=== PATIENT | female | born 1970 | race Caucasian/White ===

== ENCOUNTER 2019-11-01 07:37 | Outpatient (CLI) | payer OTHER, SELFPAY ==
[2019-11-01 09:10] LABS: Alanine Aminotransferase 23 U/L (14-59); Albumin Level 3.7 g/dL (3.4-5.0); Alkaline Phosphatase 99 U/L (46-116); Aspartate Amino Transferase 15 U/L (15-37); Bilirubin,Total 0.4 mg/dL (0.00-1.00); Blood Urea Nitrogen 14 mg/dL (7-18); Calcium 8.1 mg/dL (8.5-10.1); Carbon Dioxide 29 mmol/L (21-32); Chloride 103 mmol/L (98-108); Cholesterol 211 mg/dL (0-200); Estimated Glomerular Filt Rate > 60; Glucose 90 mg/dL (70-99); HDL Direct 47 mg/dL (40-60); LDL Cholesterol Calculated 135 mg/dL (<130); Osmolality Calculated 288 mOsm/kg (285-295); Sodium 139 mmol/L (136-145); Thyroid Stimulating Hormone 16.52 uIU/mL (0.36-3.74); Total Protein 7.1 g/dL (6.4-8.2); Triglycerides 143 mg/dL (0-150)
== END 2019-11-01 07:38 | disposition home or self-care (01) ==
PROVIDERS: PCP Internal Medicine; Visit Provider Internal Medicine
DX: Z00.00 Encounter for general adult medical examination without abnormal findings (principal); E03.9 Hypothyroidism, unspecified
CPT/HCPCS: 36415; 80053; 80061; 84443

== ENCOUNTER 2020-05-24 09:09 | Outpatient (CLI) | payer OTHER, SELFPAY ==
[2020-05-24 10:11] LABS: Alanine Aminotransferase 22 U/L (14-59); Albumin Level 3.8 g/dL (3.4-5.0); Alkaline Phosphatase 97 U/L (46-116); Anion Gap 9 mmol/L (8-16); Aspartate Amino Transferase 12 U/L (15-37); Bilirubin,Total 0.5 mg/dL (0.00-1.00); Blood Urea Nitrogen 14 mg/dL (7-18); Calcium 8.5 mg/dL (8.5-10.1); Carbon Dioxide 27 mmol/L (21-32); Chloride 102 mmol/L (98-108); Cholesterol 203 mg/dL (0-200); Estimated Glomerular Filt Rate > 60; Glucose 88 mg/dL (70-99); HDL Direct 44 mg/dL (40-60); LDL Cholesterol Calculated 137 mg/dL (<130); Osmolality Calculated 285 mOsm/kg (285-295); Sodium 138 mmol/L (136-145); Total Protein 7.4 g/dL (6.4-8.2); Triglycerides 110 mg/dL (0-150)
[2020-05-24 11:03] LABS: Thyroid Stimulating Hormone 3.72 uIU/mL (0.36-3.74)
== END 2020-05-24 09:10 | disposition home or self-care (01) ==
LOC: CHSLAB 09:13
PROVIDERS: PCP Internal Medicine; Visit Provider Physician Assistant
DX: Z00.00 Encounter for general adult medical examination without abnormal findings (principal)
CPT/HCPCS: 36415; 80053; 80061; 84443

== ENCOUNTER 2022-12-10 08:53 | Outpatient (CLI) | payer BC, SELFPAY ==
--- NOTE | ~2022-12-10 | MM_ITS ---
EXAMINATION: MM screening francisco BI w geovany HISTORY: Screening mammogram TECHNIQUE: Craniocaudal and mediolateral oblique 3-D tomosynthesis images were obtained and synthetic 2-D images were generated. CAD analysis was submitted and interpreted. COMPARISON: No prior mammogram is available for comparison at this institution. BREAST PARENCHYMAL COMPOSITION: There are scattered areas of fibroglandular density. FINDINGS: RIGHT BREAST: There is a possible mass in the middle third of the upper-outer quadrant of the breast. An asymmetry is present in the subareolar aspect of the breast on the mediolateral oblique view. LEFT BREAST: A possible mass is present in the middle third of the upper outer quadrant of the breast .. IMPRESSION: 1. Bilateral breast findings as above which may represent the patient's baseline however no compariso n is currently available. 2. Comparison with prior mammograms is necessary. BI-RADS Category 0: Incomplete: Needs comparison with prior mammograms. Reviewed, dictated and finalized at location A. IMPRESSION: 1. Bilateral breast findings as above which may represent the patient's baselin e however no comparison is currently available. 2. Comparison with prior mammograms is necessary. BI-RADS Category 0: Incomplete: Needs comparison with prior mammograms.
[2022-12-10 09:25] LABS: Basophils Absolute Auto 0.04 K/mm3 (0.00-0.10); Basophils Percent Auto 0.4 % (0.0-1.0); Bilirubin Urine Negative (Negative); Blood Urine Trace-Intact (Negative); Color Urine Yellow (Yellow); Eosinophils Absolute Auto 0.21 K/mm3 (0.02-0.50); Eosinophils Percent Auto 2.2 % (1.0-6.0); Glucose Urine UA Negative (Negative); Hematocrit 41.4 % (35.0-49.0); Hemoglobin 13.5 g/dL (12.0-15.0); Immature Granulocyte Absolute 0.05 K/mm3 (0.00-0.00); Immature Granulocyte Percent A 0.5 % (0.0-0.0); Ketones Urine Negative (Negative); Leukocyte Esterase Ur Negative (Negative); Lymphocytes Absolute Auto 1.88 K/mm3 (1.10-4.50); Lymphocytes Percent Auto 19.5 % (18.0-42.0); Mean Corpuscular HGB Conc 32.6 g/dL (32.0-36.0); Mean Corpuscular Hemoglobin 28.2 pg (27.0-31.0); Mean Corpuscular Volume 86.6 fL (78.0-102.0); Mean Platelet Volume 9.1 fl (9.2-11.8); Monocytes Absolute Auto 0.52 K/mm3 (0.10-0.90); Monocytes Percent Auto 5.4 % (2.0-11.0); Nitrate Urine Negative (Negative); Platelet Count Result 209 K/mm3 (150-420); Protein Urine Negative (Negative); Red Blood Count 4.78 M/mm3 (4.20-5.40); Red Cell Distribution Width 12.9 % (11.6-14.4); Specific Grav Ur >= 1.030 (1.010-1.020); Urobilinogen Urine 0.2 mg/dL (0.2-1.0); White Blood Count 9.7 K/mm3 (4.8-10.8); pH Urine 5.5 (5.0-8.0)
[2022-12-10 09:28] LABS: Add Urine Microscopic? YES; Appearance Urine Cloudy (Clear); Bacteria Urine 1+ /hpf; RBC Urine 0-2 /hpf (0-2); Squamous Epithelial Cell Urine Moderate /hpf (Few); WBC Urine None seen /hpf (0-3)
[2022-12-10 10:02] LABS: Alanine Aminotransferase 24 U/L (14-59); Albumin Level 3.6 g/dL (3.4-5.0); Alkaline Phosphatase 103 U/L (46-116); Anion Gap 10 mmol/L (8-16); Bilirubin,Total 0.5 mg/dL (0.00-1.00); Blood Urea Nitrogen 12 mg/dL (7-18); Calcium 8.5 mg/dL (8.5-10.1); Carbon Dioxide 25 mmol/L (21-32); Chloride 106 mmol/L (98-108); Cholesterol 207 mg/dL (0-200); Estimated Glomerular Filt Rate > 60; Glucose 94 mg/dL (70-99); HDL Direct 51 mg/dL (40-60); LDL Cholesterol Calculated 139 mg/dL (<130); Osmolality Calculated 291 mOsm/kg (285-295); Sodium 141 mmol/L (136-145); Total Protein 7.1 g/dL (6.4-8.2); Triglycerides 87 mg/dL (0-150)
[2022-12-10 10:12] LABS: Aspartate Amino Transferase 12 U/L (15-37)
== END 2022-12-10 08:54 | disposition home or self-care (01) ==
LOC: CHSIMG 08:54
PROVIDERS: PCP Internal Medicine; Visit Provider Internal Medicine
DX: Z00.00 Encounter for general adult medical examination without abnormal findings (principal); Z12.31 Encounter for screening mammogram for malignant neoplasm of breast; R92.8 Other abnormal and inconclusive findings on diagnostic imaging of breast
CPT/HCPCS: 36415; 77063; 77067; 80053; 80061; 81001; 85025

== ENCOUNTER 2023-01-15 08:53 | Outpatient (CLI) | payer BC, SELFPAY ==
--- NOTE | ~2023-01-15 | MMUS_ITS ---
EXAMINATION: MM diagnostic francisco RT w geovany, US breast RT limited HISTORY: Subareolar asymmetry and possible right breast mass on screening mammogram TECHNIQUE: Additional 3-D tomosynthesis images of the right breast were performed and synthetic 2-D i mages were generated. CAD analysis was submitted and interpreted. High resolution limited right breas t ultrasound was performed. COMPARISON: 12/10/2022, 09/27/2021 BREAST PARENCHYMAL COMPOSITION: There are scattered areas of fibroglandular density. FINDINGS: MAMMOGRAPHIC FINDINGS: No definite subareolar asymmetry or right breast masses are identified with spot compression views. T here are no suspicious calcifications or architectural distortion. ULTRASOUND: There is dense breast tissue in the upper outer quadrant of the breast corresponding to the fibroglan dular tissue seen on the mammogram. A 4 mm cyst is noted at the 10:00 location, 5 cm from the nipple. IMPRESSION: 1. No mammographic or sonographic evidence of malignancy. 2. Recommend routine screening mammography in one year. BI-RADS Category 2: Benign finding(s). Reviewed, dictated and finalized at location L. IMPRESSION: 1. No mammographic or sonographic evidence of malignancy. 2. Recommend routine screening mammography in one year. BI-RADS Category 2: Benign finding(s).
== END 2023-01-15 08:54 | disposition home or self-care (01) ==
LOC: CHSIMG 08:54
PROVIDERS: PCP Internal Medicine; Visit Provider Internal Medicine
DX: R92.8 Other abnormal and inconclusive findings on diagnostic imaging of breast (principal)
CPT/HCPCS: 76642; 77061; 77065; G0279

== ENCOUNTER 2024-02-15 15:12 | Outpatient (CLI) | payer BC, OTHER, SELFPAY ==
--- NOTE | ~2024-02-15 | MM_ITS ---
EXAMINATION: MM screening francisco BI w geovany HISTORY: Screening TECHNIQUE: Craniocaudal and mediolateral oblique 3-D tomosynthesis images were obtained and synthetic 2-D images were generated. CAD analysis was submitted and interpreted. COMPARISON: Comparison to multiple prior studies sequentially, with oldest reviewed study dated 09/27. BREAST PARENCHYMAL COMPOSITION: Not dense: There are scattered areas of fibroglandular density. FINDINGS: The left breast is stable without evidence for malignancy. There is a small cluster of inde terminate calcifications in the upper inner quadrant of the right breast, middle third. IMPRESSION: 1. Focal clustered indeterminate right breast calcifications. 2. Magnification views are recommended. BI-RADS Category 0: Incomplete: Needs additional imaging evaluation. Reviewed, dictated and finalized at location B.
== END 2024-02-15 15:13 | disposition home or self-care (01) ==
PROVIDERS: PCP Internal Medicine; Visit Provider Internal Medicine
DX: Z12.31 Encounter for screening mammogram for malignant neoplasm of breast (principal); R92.8 Other abnormal and inconclusive findings on diagnostic imaging of breast
CPT/HCPCS: 77063; 77067

== ENCOUNTER 2024-02-26 08:50 | Outpatient (CLI) | payer BC, OTHER, SELFPAY ==
--- NOTE | ~2024-02-26 | MM_ITS ---
EXAMINATION: MM diagnostic francisco RT w geovany HISTORY: Follow-up right breast calcifications TECHNIQUE: Additional 3-D tomosynthesis images of the right breast were performed and synthetic 2-D i mages were generated. CAD analysis was submitted and interpreted. COMPARISON: Comparison to multiple prior studies sequentially, with oldest reviewed study dated 09/27. BREAST PARENCHYMAL COMPOSITION: Not dense: There are scattered areas of fibroglandular density. FINDINGS: Right breast calcifications are relatively monomorphic and likely benign. No suspicious mas ses or architectural distortion are identified. IMPRESSION: 1. Probable benign right breast calcifications. 2. Recommend 6 month follow-up diagnostic right mammogram BI-RADS category 3, probably benign findings. Reviewed, dictated and finalized at location B.
== END 2024-02-26 08:51 | disposition home or self-care (01) ==
PROVIDERS: PCP Internal Medicine; Visit Provider Internal Medicine
DX: R92.8 Other abnormal and inconclusive findings on diagnostic imaging of breast (principal)
CPT/HCPCS: 77061; 77065; G0279

== ENCOUNTER 2024-10-05 14:39 | Outpatient (CLI) | payer BC, OTHER, SELFPAY ==
--- NOTE | ~2024-10-05 | XR_ITS ---
Left foot Technique: AP, oblique, and lateral views were obtained. Clinical History: Pain Findings: No acute fracture or dislocation is seen. Osseous alignment is anatomic. There is mild dege nerative change at the first MTP joint. Soft tissues are unremarkable. Impression: Mild degenerative change of the first MTP joint. Reviewed, dictated and finalized at [facility]. Impression: Mild degenerative change of the first MTP joint.
--- OUTSIDE RECORDS SUMMARY | 2024-10-05 14:45 | XMS_ITS | Clinical Summary ---
Author Organization [facility] Medical Office Building A Address [address] [place] [address] Care Team Providers Care Blade Filer Name Role Phone Rui Nicole MD Primary Care Provider [phone] Allergies Active Allergy Reactions Criticality Noted Date Comments Aspirin Medications famciclovir (FAMVIR) 500 mg tablet 05/20/2020 Active lidocaine (XYLOCAINE) 5 % ointment 05/20/2020 Active gabapentin (NEURONTIN) 300 mg capsule Take 1 capsule (300 mg total) by mouth 3 (three) times a day For shingles pain 90 capsule 5 05/25/2020 Active levothyroxine (SYNTHROID) 200 mcg tablet Take 1 tablet (200 mcg total) by mouth daily Note new dose 90 tablet 3 05/25/2020 Active estradioL (ESTRACE) 0.5 mg tablet Take 1 tablet (0.5 mg total) by mouth daily 90 tablet 3 05/25/2020 Active Allergy Relief,Nasal Decongest 10-240 mg per 24 hr tablet TAKE ONE TABLET BY MOUTH DAILY 90 tablet 1 11/30/2020 Active Active Problems Problem Noted Date Diagnosed Date Special screening for malignant neoplasms, colon 10/25/2019 Overview (10/25/2019): Added automatically from request for surgery [id number] Morbid obesity with BMI of 40.0-44.9, adult 09/16 Assessment & Plan (10/06/2019 5:40 PM CDT): She was counseled on the importance of maintaining a healthy weight and the risks of obesity. Weight loss recommended. Annual physical exam 10/15/2018 Assessment & Plan (10/15/2018 2:03 PM CDT): Pt is up-to-date on all vaccinations including her Tdap vaccination, influenza vaccination in the recent year and he was encouraged to the follow back up in 1 year for repeat influenza vaccination. Pt was strongly encouraged to Cnt. With heart healthy diet with modifications considering chronic conditions, and developing exercise regimen to improve overall heart health. Patient's wellness labs were all reviewed with her today in clinic. No concerns of depression, anxiety or insomnia. I strongly encouraged her to work Toward healthy weight loss. In regard to health maintenance, Colonoscopy PSA Mammogram and WWE completed in July of 2018. Mammogram BI-RADS score of 1. We also had a discussion in regard to her eligibility for color guard which I gave her information on to look into further for further discussion for next CPE when 48. ASCVD risk: low at 3.5% All past family, social, medical, and surgical history reviewed and updated in EMR. Pt was encouraged to follow back up for next annual CP with labs prior to visit. Encounter for pre-employment health screening ex amination 10/15/2018 Hypothyroidism 10/01/2013 Overview (08/21/2016): HYPOTHYROIDISM NOS Assessment & Plan (10/15/2018 1:17 PM CDT): TSH level well WNL at 3.39. Cnt. With current dose of levothyroxine 175 mcg daily. Repeat testing in 6 months Resolved Problems Problem Noted Date Diagnosed Date Resolved Date Gastroesophageal reflux disease 10/01/2013 07/20/2017 Overview (08/21/2016): ESOPHAGEAL REFLUX Immunizations Immunization Administration Dates Next Due Influenza, Quadrivalent, Alesha l Culture-based MDCK, Preservative Free, Antibiotic Free, Intramuscular 02/17/2020,03/24/2019 Influenza, Quadrivalent, Split, Intramuscular Influenza, Quadrivalent, Spl it, Preservative Free, Intradermal 04/20/2015 Influenza, Trivalent, Preservative Free, Intramu scular 02/27/2016 Influenza, Trivalent, Recomb inant, Egg Free, Preservative Free, Antibiotic Free, IM (FLUBLOK) 03/27/2014 Influenza, Unspecified 02/17/2020,02/28/2017 Tdap 02/05/2009 Surgical History Surgery Date Site/Laterality Comments HYSTERECTOMY COLONOSCOPY 01/10/2020 1st BREAST CYST EXCISION 05/18/2009 - 05/17/2010 Right benign cyst excised 2009? 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 Hx Other Medical hypothyroid Gastroesophageal reflux disease GERD Hx Other Medical DJD of knees Family History Medical History Relation Name Comments Diabetes Brother Diabetes mellit us; Lung cancer Father Throat cancer Father Cancer -throat ; Hypertension Mother Hypertension; Lung cancer Other 1 Family history of Cancer -lung; Diabetes Other 2 Family history of Diabetes mellitus; Hypertension Other 3 Family history of Hypertension; Relation Name Status Comments Brother Father Mother Other 1 Other 2 Other 3 Social History Tobacco Use Types Packs/Day Years Used Date Smoking Tobacco: Never Smokeless Tobacco: Never Tobacco Cessation:Counseling Given: Yes Alcohol Use Standard Drinks/Week Comments Yes 0 (1 standard drink = 0.6 oz pur e alcohol) PHQ-2 Answer Date Recorded PHQ-2 Total Score (If total score is 3 or more points, staff should administer the PHQ-9) 0 05/25/2020 Comments No Sex and Gender Information Value Date Recorded Sex Assigned at Not on file Legal Sex Female 11:55 PM 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 FLOAT FINISHER Gender Identity Not on file Sexual Orientation Not on file Obstetrics History Para Term AB IAB SAB Ectopic Multiple Livin g Live Births 0 0 0 0 0 0 0 0 0 0 0 Last Filed Vital Signs Vital Sign Reading Time Taken Comments Blood Pressure 136/80 05/25/2020 11:41 AM BULL FLOAT FINISHER Pulse 80 05/25/2020 11:41 AM BULL FLOAT FINISHER Temperature 36.8 C (98.3 F) 05/25/2020 11:41 AM BULL FLOAT FINISHER Respiratory Rate 16 05/25/2020 11:41 AM BULL FLOAT FINISHER Oxygen Saturation 100% 01/10/2020 1:30 PM CDT Inhaled Oxygen Concentration - - Weight 90.7 kg (200 lb) 09/24/2020 9:53 AM CDT Height 163.8 cm (5' 4.5 ) 09/24/2020 9:53 AM CDT Body Mass Index 33.8 09/24/2020 9:53 AM CDT Plan of Treatment Not on file Insurance Zenaida LOWE, [place] [id number] [facility] OPEN ACCESS Advance Directives For more information, please contact: [phone] * Full Code (Latest Code Status on File) Date Activated Date Inactivated Comments 01/10/2020 11:27 AM 01/10/2020 5:59 PM * Full Code Date Activated Date Inactivated Comments 01/10/2020 11:27 AM 01/10/2020 11:27 AM Care Teams Blade Filer Relationship Specialty Start Date End Date Rui Nicole MD PCP - General 09/27/21
--- OUTSIDE RECORDS SUMMARY | 2024-10-05 14:45 | XMS_ITS | Referral Summary ---
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 Gender Identity Not on file Sexual Orientation Not on file Last Filed Vital Signs Vital Sign Reading Time Taken Comments Blood Pressure 136/80 05/25/2020 11:41 AM SENIOR MAJOR GIFTS OFFICER Pulse 80 05/25/2020 11:41 AM SENIOR MAJOR GIFTS OFFICER Temperature 36.8 C (98.3 F) 05/25/2020 11:41 AM SENIOR MAJOR GIFTS OFFICER Respiratory Rate 16 05/25/2020 11:41 AM SENIOR MAJOR GIFTS OFFICER Oxygen Saturation 100% 01/10/2020 1:30 PM CDT Inhaled Oxygen Concentration - - Weight 90.7 kg (200 lb) 09/24/2020 9:53 AM CDT Height 163.8 cm (5' 4.5 ) 09/24/2020 9:53 AM CDT Body Mass Index 33.8 09/24/2020 9:53 AM CDT Plan of Treatment Not on file Insurance [employer] [facility] [employer] OPEN ACCESS Advance Directives For more information, please contact: [phone] * Full Code (Latest Code Status on File) Date Activated Date Inactivated Comments 01/10/2020 11:27 AM 01/10/2020 5:59 PM * Full Code Date Activated Date Inactivated Comments 01/10/2020 11:27 AM 01/10/2020 11:27 AM Care Teams Shingle Packer Relationship Specialty Start Date End Date Rui Nicole MD PCP - General 09/27/21
== END 2024-10-05 14:40 | disposition home or self-care (01) ==
LOC: CHSIMG 14:41
PROVIDERS: PCP Internal Medicine; Visit Provider Nurse Practitioner Family
DX: M79.672 Pain in left foot (principal)
CPT/HCPCS: 73630

== ENCOUNTER 2024-10-13 08:20 | Outpatient (CLI) | payer BC, OTHER, SELFPAY ==
--- NOTE | ~2024-10-13 | US_ITS ---
EXAM: ABDOMEN ULTRASOUND HISTORY: ABD PAIN;HEMATURIA COMPARISON: None FINDINGS: LIVER: The liver is unremarkable in echogenicity and size. The portal vein is patent, demonstrating hepatopedal flow. GALLBLADDER: Multiple stones are identified within the gallbladder, which is otherwise unremarkable. The stones are bulky and mobile. No gallbladder wall thickening or pericholecystic fluid. BILE DUCTS: Common bile duct measures 3.6mm. PANCREAS: Limited evaluation of the pancreas secondary to overlying bowel gas RIGHT KIDNEY 9.8 x 5.3 x 5.3 cm No hydronephrosis or renal calculi. 6 millimeter rounded focus of fat attenuation within the interpolar region of the right kidney, consi stent with an angiomyolipoma The remainder of the parenchyma of the right kidney is otherwise unremarkable. LEFT KIDNEY 10.4 x 6.3 x 6.3 cm No hydronephrosis or renal calculi. Exophytic from the upper pole of the left kidney is a rounded anechoic avascular focus measuring 26 x 26 x 21 mm, consistent with a simple cyst. The remainder of the parenchyma of the left kidney is otherwise unremarkable. IMPRESSION: Cholelithiasis, without ultrasound evidence of cholecystitis. 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 Simple cyst within the left kidney for which no further follow-up is needed. Reviewed, dictated and finalized at location A.
--- OUTSIDE RECORDS SUMMARY | 2024-10-13 08:26 | XMS_ITS | Clinical Summary ---
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 Hx Other Medical hypothyroid Gastroesophageal reflux disease [...] on file Legal Sex Female 11:55 PM MACHINE HAND Gender Identity Not on file Sexual Orientation Not on file Obstetrics History Para Term AB IAB SAB Ectopic Multiple Livin g Live Births 0 0 0 0 0 0 0 0 0 0 0 Last Filed Vital Signs Vital Sign Reading Time Taken Comments Blood Pressure 136/80 05/25/2020 11:41 AM MACHINE HAND Pulse 80 05/25/2020 11:41 AM MACHINE HAND Temperature 36.8 C (98.3 F) 05/25/2020 11:41 AM MACHINE HAND Respiratory Rate 16 05/25/2020 11:41 AM MACHINE HAND Oxygen Saturation 100% 01/10/2020 1:30 PM CDT Inhaled Oxygen Concentration - - Weight 90.7 kg (200 lb) 09/24/2020 9:53 AM CDT Height 163.8 cm (5' 4.5) 09/24/2020 9:53 AM CDT Body Mass Index 33.8 09/24/2020 9:53 AM CDT Plan of Treatment Not on file Insurance Zenaida LOWE, [place] [id number] [facility] [facility] OPEN ACCESS Advance Directives For more information, please contact: [phone] * Full Code (Latest Code Status on File) Date Activated Date Inactivated Comments 01/10/2020 11:27 AM 01/10/2020 5:59 PM * Full Code Date Activated Date Inactivated Comments 01/10/2020 11:27 AM 01/10/2020 11:27 AM Care Teams Frame Stripper And Crusher Relationship Specialty Start Date End Date Rui Nicole MD PCP - General 09/27/21
--- OUTSIDE RECORDS SUMMARY | 2024-10-13 08:26 | XMS_ITS | Referral Summary ---
Author Organization [facility] Medical Office Building A Address [address] [place] [address] Care Team Providers Care Civil Engineering Manager Name Role Phone Rui Nicole MD Primary Care Provider [phone] Allergies Active Allergy Reactions Criticality Noted Date [...] (10/25/2019): Added automatically from request for surgery [id number] Morbid obesity with BMI of 40.0-44.9, adult [...] on file Legal Sex Female 11:55 PM AUTOGLAZIER Gender Identity Not on file Sexual Orientation Not on file Last Filed Vital Signs Vital Sign Reading Time Taken Comments Blood Pressure 136/80 05/25/2020 11:41 AM AUTOGLAZIER Pulse 80 05/25/2020 11:41 AM AUTOGLAZIER Temperature 36.8 C (98.3 F) 05/25/2020 11:41 AM AUTOGLAZIER Respiratory Rate 16 05/25/2020 11:41 AM AUTOGLAZIER Oxygen Saturation 100% 01/10/2020 1:30 PM CDT Inhaled Oxygen Concentration - - Weight 90.7 kg (200 lb) 09/24/2020 9:53 AM CDT Height 163.8 cm (5' 4.5) 09/24/2020 9:53 AM CDT Body Mass Index 33.8 09/24/2020 9:53 AM CDT Plan of Treatment Not on file Insurance [employer] [facility] H[facility] [employer] OPEN ACCESS Advance Directives For more information, please contact: [phone] * Full Code (Latest Code Status on File) Date Activated Date Inactivated Comments 01/10/2020 11:27 AM 01/10/2020 5:59 PM * Full Code Date Activated Date Inactivated Comments 01/10/2020 11:27 AM 01/10/2020 11:27 AM Care Teams Civil Engineering Manager Relationship Specialty Start Date End Date Rui Nicole MD PCP - General 09/27/21
[2024-10-13 09:01] LABS: Add Urine Microscopic? NO; Appearance Urine Clear (Clear); Bilirubin Urine Negative (Negative); Blood Urine Negative (Negative); Color Urine Yellow (Yellow); Glucose Urine UA Negative (Negative); Ketones Urine Trace mg/dL (Negative); Leukocyte Esterase Ur Negative LEU/UL (Negative); Nitrate Urine Negative (Negative); Protein Urine Negative (Negative); Specific Grav Ur 1.026 (1.001-1.035); Urobilinogen Urine 0.2 mg/dL (<2.0); pH Urine 5.5 (5.0-9.0)
[2024-10-13 09:07] LABS: Hematocrit 43.1 % (37.0-47.0); Hemoglobin 13.7 g/dL (12.0-15.0); Mean Corpuscular HGB Conc 31.8 g/dl (32-36); Mean Corpuscular Hemoglobin 28.1 pg (26-34); Mean Corpuscular Volume 88.5 fl (80-100); Mean Platelet Volume 9.4 fl (7.4-10.4); Platelet Count Result 201 k/mm3 (150-375); Red Blood Count 4.87 M/mm3 (4.2-5.4); Red Cell Distribution Width 13.2 % (11.5-14.5); White Blood Count 8.7 K/mm3 (4.5-10.0)
[2024-10-13 09:34] LABS: Alanine Aminotransferase 162 U/L (6-35); Albumin Level 4.1 g/dL (3.5-5.1); Alkaline Phosphatase 141 U/L (38-126); Amylase 63 U/L (30-110); Anion Gap 9 mmol/L (4-12); Aspartate Amino Transferase 35 U/L (14-36); Bilirubin,Total 0.6 mg/dL (0.2-1.3); Blood Urea Nitrogen 14 mg/dL (7-17); Calcium 8.9 mg/dL (8.4-10.2); Carbon Dioxide 27 mmol/L (22-30); Chloride 106 mmol/L (98-107); Estimated Glomerular Filt Rate > 60; Glucose 97 mg/dL (65-110); Lipase 122 U/L (23-300); Potassium 3.6 mmol/L (3.4-5.0); Sodium 142 mmol/L (137-145)
== END 2024-10-13 08:21 | disposition home or self-care (01) ==
LOC: ANHIMG 08:21
PROVIDERS: PCP Internal Medicine; Visit Provider Internal Medicine
DX: R10.9 Unspecified abdominal pain (principal); R31.9 Hematuria, unspecified; K80.20 Calculus of gallbladder without cholecystitis without obstruction; N28.1 Cyst of kidney, acquired
CPT/HCPCS: 36415; 76705; 80053; 81003; 82150; 83690; 85027

== ENCOUNTER 2024-10-14 07:51 | Outpatient (CLI) | payer BC, OTHER, SELFPAY ==
--- OUTSIDE RECORDS SUMMARY | 2024-10-14 07:56 | XMS_ITS | Referral Summary ---
Author Organization [facility] Medical Office Building A Address [address] [place] [address] Care Team Providers Care Paper Latcher Name Role Phone Rui Nicole MD Primary Care Provider [phone] Allergies Active Allergy Reactions Criticality Noted Date [...] (10/25/2019): Added automatically from request for surgery [id number] Morbid obesity with BMI of 40.0-44.9, adult [...] on file Legal Sex Female 11:55 PM PONY TRIMMER Gender Identity Not on file Sexual Orientation Not on file Last Filed Vital Signs Vital Sign Reading Time Taken Comments Blood Pressure 136/80 05/25/2020 11:41 AM PONY TRIMMER Pulse 80 05/25/2020 11:41 AM PONY TRIMMER Temperature 36.8 C (98.3 F) 05/25/2020 11:41 AM PONY TRIMMER Respiratory Rate 16 05/25/2020 11:41 AM PONY TRIMMER Oxygen Saturation 100% 01/10/2020 1:30 PM CDT Inhaled Oxygen Concentration - - Weight 90.7 kg (200 lb) 09/24/2020 9:53 AM CDT Height 163.8 cm (5' 4.5) 09/24/2020 9:53 AM CDT Body Mass Index 33.8 09/24/2020 9:53 AM CDT Plan of Treatment Not on file Insurance [employer] [facility] HMO [employer] OPEN ACCESS Advance Directives For more information, please contact: [phone] * Full Code (Latest Code Status on File) Date Activated Date Inactivated Comments 01/10/2020 11:27 AM 01/10/2020 5:59 PM * Full Code Date Activated Date Inactivated Comments 01/10/2020 11:27 AM 01/10/2020 11:27 AM Care Teams Paper Latcher Relationship Specialty Start Date End Date Rui Nicole MD PCP - General 09/27/21
--- OUTSIDE RECORDS SUMMARY | 2024-10-14 07:56 | XMS_ITS | Clinical Summary ---
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 Hx Other Medical hypothyroid Gastroesophageal reflux disease [...] on file Legal Sex Female 11:55 PM METAL REFINER Gender Identity Not on file Sexual Orientation Not on file Obstetrics History Para Term AB IAB SAB Ectopic Multiple Livin g Live Births 0 0 0 0 0 0 0 0 0 0 0 Last Filed Vital Signs Vital Sign Reading Time Taken Comments Blood Pressure 136/80 05/25/2020 11:41 AM METAL REFINER Pulse 80 05/25/2020 11:41 AM METAL REFINER Temperature 36.8 C (98.3 F) 05/25/2020 11:41 AM METAL REFINER Respiratory Rate 16 05/25/2020 11:41 AM METAL REFINER Oxygen Saturation 100% 01/10/2020 1:30 PM CDT Inhaled Oxygen Concentration - - Weight 90.7 kg (200 lb) 09/24/2020 9:53 AM CDT Height 163.8 cm (5' 4.5) 09/24/2020 9:53 AM CDT Body Mass Index 33.8 09/24/2020 9:53 AM CDT Plan of Treatment Not on file Insurance Zenaida LOWE, [place] [id number] [facility] OPEN ACCESS Advance Directives For more information, please contact: [phone] * Full Code (Latest Code Status on File) Date Activated Date Inactivated Comments 01/10/2020 11:27 AM 01/10/2020 5:59 PM * Full Code Date Activated Date Inactivated Comments 01/10/2020 11:27 AM 01/10/2020 11:27 AM Care Teams Motor Vehicles Inspector Relationship Specialty Start Date End Date Rui Nicole MD PCP - General 09/27/21
[2024-10-14 08:25] LABS: Alanine Aminotransferase 125 U/L (6-35); Alkaline Phosphatase 137 U/L (38-126); Anion Gap 5 mmol/L (4-12); Aspartate Amino Transferase 34 U/L (14-36); Bilirubin,Total 0.8 mg/dL (0.2-1.3); Blood Urea Nitrogen 12 mg/dL (7-17); Calcium 8.5 mg/dL (8.4-10.2); Carbon Dioxide 26 mmol/L (22-30); Chloride 108 mmol/L (98-107); Estimated Glomerular Filt Rate > 60; Glucose 90 mg/dL (65-110); Osmolality Calculated 287 mOsm/kg (285-295); Potassium 3.8 mmol/L (3.4-5.0); Sodium 139 mmol/L (137-145); Total Protein 6.8 g/dL (6.3-8.2)
[2024-10-15 08:09] LABS: Hepatitis B Surface Antigen NON-REACTIVE (NON-REACTIVE)
[2024-10-15 13:43] LABS: Hepatitis A Antibody IgM NON-REACTIVE (NON-REACTIVE); Hepatitis B Core Antibody NON-REACTIVE (NON-REACTIVE); Hepatitis C Virus Antibody NON-REACTIVE (NON-REACTIVE)
== END 2024-10-14 07:52 | disposition home or self-care (01) ==
LOC: CHSLAB 07:54
PROVIDERS: PCP Internal Medicine; Visit Provider Internal Medicine
DX: R94.5 Abnormal results of liver function studies (principal)
CPT/HCPCS: 36415; 80053; 80074; 82728

== ENCOUNTER 2024-11-16 10:02 | Outpatient (CLI) | payer BC, OTHER, SELFPAY ==
--- NOTE | 2024-11-16 10:06 | ECG_ITS ---
Test Date: 2024-11-16 10:15:32 Measurements Intervals [place] Rate: 66 P: -8 ND: 159 QRS: 32 QRSD: 96 T: 23 QT: 412 QTc: 432 Interpretive Statements SINUS RHYTHM INCOMPLETE RIGHT BUNDLE BRANCH BLOCK [90+ ms QRS DURATION, TERMINAL R IN V1/V2, 40+ ms S IN I/aVL/V4/V5/V6] BORDERLINE ECG No previous ECG available for comparison Electronically Signed On 11-16-2024 13:00:25 CDT by Xavier Estrada M.D.
--- OUTSIDE RECORDS SUMMARY | 2024-11-16 10:25 | XMS_ITS | Referral Summary ---
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 Gender Identity Not on file Sexual Orientation Not on file Last Filed Vital Signs Vital Sign Reading Time Taken Comments Blood Pressure 136/80 05/25/2020 11:41 AM WELLNESS DIRECTOR Pulse 80 05/25/2020 11:41 AM WELLNESS DIRECTOR Temperature 36.8 C (98.3 F) 05/25/2020 11:41 AM WELLNESS DIRECTOR Respiratory Rate 16 05/25/2020 11:41 AM WELLNESS DIRECTOR Oxygen Saturation 100% 01/10/2020 1:30 PM CDT Inhaled Oxygen Concentration - - Weight 90.7 kg (200 lb) 09/24/2020 9:53 AM CDT Height 163.8 cm (5' 4.5) 09/24/2020 9:53 AM CDT Body Mass Index 33.8 09/24/2020 9:53 AM CDT Plan of Treatment Not on file Insurance [employer] [facility] HMO [employer] OPEN ACCESS Advance Directives For more information, please contact: [phone] * Full Code (Latest Code Status on File) Date Activated Date Inactivated Comments 01/10/2020 11:27 AM 01/10/2020 5:59 PM * Full Code Date Activated Date Inactivated Comments 01/10/2020 11:27 AM 01/10/2020 11:27 AM Care Teams Local Operator Relationship Specialty Start Date End Date Rui Nicole MD PCP - General 09/27/21
--- OUTSIDE RECORDS SUMMARY | 2024-11-16 10:25 | XMS_ITS | Clinical Summary ---
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 Gender Identity Not on file Sexual Orientation Not on file Obstetrics History Para Term AB IAB SAB Ectopic Multiple Livin g Live Births 0 0 0 0 0 0 0 0 0 0 0 Last Filed Vital Signs Vital Sign Reading Time Taken Comments Blood Pressure 136/80 05/25/2020 11:41 AM CUSTOMER CONTACT SALES ASSOCIATE Pulse 80 05/25/2020 11:41 AM CUSTOMER CONTACT SALES ASSOCIATE Temperature 36.8 C (98.3 F) 05/25/2020 11:41 AM CUSTOMER CONTACT SALES ASSOCIATE Respiratory Rate 16 05/25/2020 11:41 AM CUSTOMER CONTACT SALES ASSOCIATE Oxygen Saturation 100% 01/10/2020 1:30 PM CDT Inhaled Oxygen Concentration - - Weight 90.7 kg (200 lb) 09/24/2020 9:53 AM CDT Height 163.8 cm (5' 4.5) 09/24/2020 9:53 AM CDT Body Mass Index 33.8 09/24/2020 9:53 AM CDT Plan of Treatment Not on file Insurance Zenaida LOWE, [place] [id number] [facility] OPEN ACCESS Advance Directives For more information, please contact: [phone] * Full Code (Latest Code Status on File) Date Activated Date Inactivated Comments 01/10/2020 11:27 AM 01/10/2020 5:59 PM * Full Code Date Activated Date Inactivated Comments 01/10/2020 11:27 AM 01/10/2020 11:27 AM Care Teams Director Erp Relationship Specialty Start Date End Date Rui Nicole MD PCP - General 09/27/21
== END 2024-11-16 10:03 | disposition home or self-care (01) ==
PROVIDERS: PCP Internal Medicine; Visit Provider Surgery
DX: Z01.818 Encounter for other preprocedural examination (principal); K80.20 Calculus of gallbladder without cholecystitis without obstruction; I45.19 Other right bundle-branch block
CPT/HCPCS: 93005

== ENCOUNTER 2024-11-21 01:02 | Day surgery (SDC) | payer BC, OTHER, SELFPAY ==
[2024-11-15 15:55] VITALS: BMI 39.5
--- NOTE | 2024-11-15 16:04 | PC.NURSE ---
Report to the Outpatient Waiting Room, entrance under the green pavilion located off [facility], at time _1200_ on date _01-68-1049_. Planned Procedure Time: _2pm_.? Time changes happen often and if your time is changed the preop area will call you the afternoon before. - You and your visitor will be asked to self-screen and do not enter if you have any COVID symptoms. Please call surgeon if you need to reschedule. - A mask is optional within the hospital at this time. Patients may have clear liquids (water, carbonated beverages, clear teas, apple juice) until 3 hours prior to surgery with a maximum of 20 ounces. - No food from midnight until time of surgery and no smoking, or chewing tobacco (or any form of nicotine). No chewing gum, candy or mints. Take only the following medications with a SIP of water on the morning of surgery: ___Levothyroxine____ DO NOT STOP ANY OF YOUR OTHER PRESCRIPTION MEDICATIONS PRIOR TO SURGERY EXCEPT THE FOLLOWING Hold all vitamins and supplements for 3 days per anesthesiologist. Medications to discontinue per physician Date to take last dose Please no make-up, nail kosovan, hairspray, perfume, deodorant, or body powder the day of surgery.? No jewelry (including any body piercings) or valuables the day of surgery, leave them at home.? Please take a shower or bath the night before, or the morning of, surgery with an antibacterial soap.? Wear comfortable, loose fitting clothing.? - Jewelry must be removed prior to entering the operating room.? Rings and piercings that are not removed may be cut off. - The hospital will not accept responsibility for valuables.? - Please leave all valuables, including medications, at home the day of surgery. If you are going home after surgery, a licensed driver lifter of sanitation truck must drive you home.? - NO public transportation without another adult if you receive anesthesia. - We recommend that an adult stay with you for 24 hours following discharge. - We also recommend that you do not drive, make important decision, drink alcoholic beverages, or take any drugs that were not prescribed by your health care provider for at least 24 hours after your discharge time. Follow any additional instructions given to you from your surgeon. Telephone instructions given to __Angie___and asked if any additional questions and then verbalized understanding. Patient advised to call surgeon office or pre surgery nurse liaison [phone] if any additional questions.
[2024-11-21] VITALS (9 sets, daily range): BP systolic 104–159; BP diastolic 64–82; PULSE 57–78; RESP 12–18; TEMP 36.2–36.8; O2SAT 93–98
--- NOTE | 2024-11-21 | S_PTH ---
PATIENT: Belinda Ornelas LOC: [facility] U#:[id number] AGE/SX: 54/F ROOM: RE11/21/[address]: Cristino Baumann MD : 1970 BED: DIS: 11/21/2024 SPEC #: [id number] RECD: 11/21/24 13:22 STATUS: CATRACHITA REQ #: [id number] RENÉ: 11/21/24 00:[address]: Cristino Baumann DEPT: [facility] Surgical RECD BY: Irma Whitney ENTERED: 11/21/24 13:23 SP TYPE: Surgical OTHR DR: Rui Nicole MD Tissues: A - Gallbladder Procedures: Hematoxylin and Eosin Stain Gross and Microscopic Level 3
--- OUTSIDE RECORDS SUMMARY | 2024-11-21 01:05 | XMS_ITS | Referral Summary ---
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 Gender Identity Not on file Sexual Orientation Not on file Last Filed Vital Signs Vital Sign Reading Time Taken Comments Blood Pressure 136/80 05/25/2020 11:41 AM FLAT SPRING ASSEMBLER Pulse 80 05/25/2020 11:41 AM FLAT SPRING ASSEMBLER Temperature 36.8 C (98.3 F) 05/25/2020 11:41 AM FLAT SPRING ASSEMBLER Respiratory Rate 16 05/25/2020 11:41 AM FLAT SPRING ASSEMBLER Oxygen Saturation 100% 01/10/2020 1:30 PM CDT Inhaled Oxygen Concentration - - Weight 90.7 kg (200 lb) 09/24/2020 9:53 AM CDT Height 163.8 cm (5' 4.5) 09/24/2020 9:53 AM CDT Body Mass Index 33.8 09/24/2020 9:53 AM CDT Plan of Treatment Not on file Insurance AETNA [facility] HMO [employer]IG[employer]ONG OPEN ACCESS Advance Directives For more information, please contact: [phone] * Full Code (Latest Code Status on File) Date Activated Date Inactivated Comments 01/10/2020 11:27 AM 01/10/2020 5:59 PM * Full Code Date Activated Date Inactivated Comments 01/10/2020 11:27 AM 01/10/2020 11:27 AM Care Teams Electronic Installer Relationship Specialty Start Date End Date Rui Nicole MD PCP - General 09/27/21
--- OUTSIDE RECORDS SUMMARY | 2024-11-21 01:06 | XMS_ITS | Clinical Summary ---
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 Gender Identity Not on file Sexual Orientation Not on file Obstetrics History Para Term AB IAB SAB Ectopic Multiple Livin g Live Births 0 0 0 0 0 0 0 0 0 0 0 Last Filed Vital Signs Vital Sign Reading Time Taken Comments Blood Pressure 136/80 05/25/2020 11:41 AM WAXED BAG MACHINE OPERATOR Pulse 80 05/25/2020 11:41 AM WAXED BAG MACHINE OPERATOR Temperature 36.8 C (98.3 F) 05/25/2020 11:41 AM WAXED BAG MACHINE OPERATOR Respiratory Rate 16 05/25/2020 11:41 AM WAXED BAG MACHINE OPERATOR Oxygen Saturation 100% 01/10/2020 1:30 PM CDT Inhaled Oxygen Concentration - - Weight 90.7 kg (200 lb) 09/24/2020 9:53 AM CDT Height 163.8 cm (5' 4.5) 09/24/2020 9:53 AM CDT Body Mass Index 33.8 09/24/2020 9:53 AM CDT Plan of Treatment Not on file Insurance Zenaida LOWE, [place] [id number] [facility] HMO [facility] OPEN ACCESS Advance Directives For more information, please contact: [phone] * Full Code (Latest Code Status on File) Date Activated Date Inactivated Comments 01/10/2020 11:27 AM 01/10/2020 5:59 PM * Full Code Date Activated Date Inactivated Comments 01/10/2020 11:27 AM 01/10/2020 11:27 AM Care Teams Physical Therapy Manager Relationship Specialty Start Date End Date Rui Nicole MD PCP - General 09/27/21
--- NOTE | 2024-11-21 08:23 | WPDHPUPDATE1 ---
History and Physical Update Update Date/Time: 11/21/24 08:23 History and Physical has been reviewed, including an updated exam of the patient. There are NO changes in the patient's condition. Risks, benefits, and alternatives have been discussed and questions answered. Patient agrees to proceed with procedure.
[2024-11-21] MEDS: LACTATED RINGERS 1,000 ML 30 ML IV CONT ×2 (10:30→12:32)
[2024-11-21] MEDS: ACETAMINOPHEN 500 MG TABLET 1000 MG PO (10:31)
[2024-11-21] MEDS: KETOROLAC 15 MG/ML VIAL (*BKC) IV PUSH (10:32)
[2024-11-21 10:45] LABS: Alanine Aminotransferase 34 U/L (6-35); Albumin Level 4.2 g/dL (3.5-5.1); Alkaline Phosphatase 89 U/L (38-126); Aspartate Amino Transferase 28 U/L (14-36); Bilirubin,Total 0.6 mg/dL (0.2-1.3); Total Protein 7.7 g/dL (6.3-8.2)
--- NOTE | 2024-11-21 11:02 | WPDANESEPPF ---
Anes - Initial Pre Proc Eval Procedure: Operation Date: 11/21/24 11:30 Proposed Procedures p Laparoscopic Cholecystectomy Possible Open - Cristino Baumann MD Date/Time: 11/21/24 11:02 Surgeon: Cristino Baumann MD Pre Op Diagnosis: Symp Cholelithiasis Patient Data Age: 54 Gender: F Height: 1.63 m Weight: 104.5 kg Allergies Allergy/AdvReac Type Severity Reaction Status Date / Time aspirin Allergy Unknown Unknown as Verified 11/21/24 10:11 a child Home Medications ?Medication ?Instructions ?Recorded ?Confirmed ?Type estradiol 0.5 mg tablet 0.5 mg PO DAILY 10/25/24 11/21/24 History levothyroxine 175 mcg capsule 175 mcg PO DAILY 10/25/24 11/21/24 History erawphiw-rfydleh-rcze-lutein tablet 1 tablet PO DAILY 10/25/24 11/21/24 History Laboratory Tests 11/21/24 10:29 Total Bilirubin 0.6 mg/dL (0.2-1.3) Direct Bilirubin 0.0 mg/dL (0-0.3) AST 28 U/L (14-36) ALT 34 U/L (6-35) Alkaline Phosphatase 89 U/L (38-126) Total Protein 7.7 g/dL (6.3-8.2) Albumin 4.2 g/dL (3.5-5.1) Patient hx anesthesia problems: post op nausea/vomiting Family hx anesthesia problems: none Results Review: All pre-operative results and documents have been reviewed as part of the pre-operative evaluation. [facility] Past Medical History Medical History (Updated 10/25/24 @ 11:44 by Naima Lai CMA) Thyroid disorder Allergies Surgical History Surgical History (Updated 10/25/24 @ 10:53 by Jim Rockwell MA) Hx of hysterectomy Family History Family History (Updated 10/25/24 @ 10:53 by Jim Rockwell MA) Father Cancer Diabetes mellitus Hypertension Mother Diabetes mellitus Hypertension Social History Social History (Updated 10/25/24 @ 10:54 by Jim Rockwell MA) Smoking status: Unknown if ever smoked Alcohol intake: never Substance use: never Substance use type: does not use Do You Feel Safe in your Home?: Yes Lack of Transportation: No Lack of Food: Never True Current Housing: I Have Housing Concerned About Future Housing: No Difficulty Paying Gas/Electric Bills: No Difficulty Paying for Meds: No Currently Unemployed: No Education: Associate Degree Difficulty w/ Childcare or Family Care: No Living arrangements: with family Occupation/Education: occupation Spiritual care concerns: No Agree to blood products: Yes Ariana - Fuad Final PreProcedure Day of Procedure 11/21/24 11:02 Patient weight: morbidly obese Heart: regular rate and rhythm Lungs: clear to auscultation Airway: Mallampati scale class III Neurological: alert and oriented Last oral intake: >/= 8 hours ASA classification: III Emergent: no Anesthetic plan: proceed Anesthesia type and monitoring: general ETT and standard monitoring Results Review: All pre-operative results and documents have been reviewed as part of the pre-operative evaluation. Informed Consent: The patient's anesthetic plan and its attendant risks and benefits were discussed with the patient/family/POA. Questions were solicited and answers provided to the satisfaction of the patient/family/POA.
[2024-11-21] MEDS: SCOPOLAMINE 1 MG PATCH 1 PATCH TRANSDERM (11:10)
[2024-11-21] MEDS: ceFAZolin 2 GM/D5W 50 ML 2 GM/50 ML BAG IVPB (11:14)
[2024-11-21] MEDS: BUPIVACAINE/EPINEPHRINE 0.5% 30 ML VIAL INFILTRATE (11:44)
[2024-11-21] MEDS: LIDOCAINE 1% LOCAL INJ 10 ML VIAL 30 ML INFILTRATE (11:44)
--- NOTE | 2024-11-21 13:02 | P.OP_ITS ---
Procedure Note - Detailed Date of Procedure 11/21/24 Pre-op Diagnosis Symp Cholelithiasis Post-op Diagnosis Same Procedure Performed Laparoscopic cholecystectomy Surgeon Cristino Baumann MD Retail Sales Representative Kristen Britton [facility] Anesthesia General Indications Patient is a 54-year-old female presented with complaints of pain in the right upper quadrant after eating. Abdominal ultrasound showed gallstones but no acute or chronic inflammation. She presents now for elective laparoscopic cholecystectomy. Findings Patient had large gallstones within the gallbladder. There were no adhesions the gallbladder. No chronic inflammation or acute inflammatory changes were seen. Description of Procedure After informed consent was obtained patient brought to the operating room she was placed supine position and general endotracheal anesthesia was administered. The abdomen was then prepped and draped usual sterile fashion. A time-out was then performed correctly identifying the patient as well as procedure to be performed. She was given perioperative IV antibiotics. I entered the abdomen left upper quadrant utilizing a 5mm Optiview port. Once inside the abdomen insufflated to adequate pneumoperitoneum of 15mmHg of CO2. Initial review of the area around the umbilicus revealed no adhesions so that I placed a 5mm periumbilical trocar port under direct visualization. Laparoscopic was then switched over to this periumbilical trocar port looking to the upper portions of the abdomen there were no adhesions to obscure my view of the gallbladder. I then placed an epigastric 10mm trocar port and 2 right lateral subcostal 5mm trocar ports all under direct visualization. Working through these ports I then held the gallbladder with laparoscopic grasper at the dome and elevated the gall bladder over the right half liver towards right shoulder. A 2nd grasper used to hold the gallbladder at the infundibulum. I then proceeded to strip down the visceral peritoneum off of the infundibular gallbladder to identify the cystic duct. The cystic duct was then dissected out circumferentially. The cystic artery which had both an anterior and posterior branch were then dissected out as well. The posterior wall the gallbladder infundibulum was dissected free of the liver until the critical view was obtained. At this point I placed clips proximally cystic duct and 2 clips distally high on infundibular gallbladder. Cystic duct was divided with Endo Tamika. In a similar fashion the anterior and posterior branches of the cystic artery were clipped and divided as well. The gallbladder was then resected off the liver utilized electrocautery. It was resected off of the liver without spilling any bile or any gallstones. The gallbladder was then placed into an Endo-Catch bag and brought up to the epigastric port site. I had enlarged epigastric port site to accommodate removing of the gallbladder and Endo-Catch bag. During removal of the gallbladder some bile did spill out of the bag and into the wound. This was suctioned up as quickly as possible. Once the gallbladder was removed from the abdomen was sent to pathology for examination with the gallstones. I then reach Ingrid the pneumoperitoneum and then irrigated out the right upper quadrant the abdomen gallbladder fossa with sterile saline solution. Hemostasis was excellent. There was no evidence of bile leak. Moved all the trocar ports under direct visualization all port sites appeared hemostatic. The abdomen was allowed to decompress. I then irrigated out the epigastric trocar port site with approximately 200 to 300 cc of sterile saline solution to try and remove as much bile and bile staining out of the subcutaneous tissues of the port site. Hemostasis was good. I then proceeded to close the epigastric port site utilizing a 0 Vicryl suture placed in a figure-eight fashion at the fascial level. All the port sites were then closed at the skin level utilizing a running subcuticular 4-0 Monocryl suture. Incisions were then cleaned the skin glue was applied. The patient tolerated the procedure well no complications. All sponges, needles, and instrument counts were correct at the end procedure. EBL was _25__cc. The patient was awakened and taken to recovery in stable and satisfactory condition. Implants None Estimated Blood Loss 25 Drains No Packing No Pathology Yes (Gallbladder and gallstones to pathology) Complications No immediate complications Condition Stable Disposition PACU [facility] Billing Surgery - Charge Forward: Surgery Billing
[2024-11-21] MEDS: oxyCODONE HCL (*CRX) 5 MG TAB IR PO (14:08)
== END 2024-11-21 15:05 | disposition home or self-care (01) ==
PROVIDERS: PCP Internal Medicine; Visit Provider Surgery
PROC: 0FT44ZZ Resection of Gallbladder, Percutaneous Endoscopic Approach (ICD-10-PCS; CPT 47562; principal; 2024-11-21 11:30)
DX: K80.10 Calculus of gallbladder with chronic cholecystitis without obstruction (principal); E07.9 Disorder of thyroid, unspecified; E66.01 Morbid (severe) obesity due to excess calories; Z68.39 Body mass index [BMI] 39.0-39.9, adult; Z98.890 Other specified postprocedural states; Z80.9 Family history of malignant neoplasm, unspecified
CPT/HCPCS: 47562; 36415; 80076; 88304; A9270; J0690; J1100; J1171; J1885; J2003; J2250; J2405; J2704; J3010; J7030; J7120